=== PATIENT | male | born 1980 | race Caucasian/White ===

== ENCOUNTER 2019-02-13 16:41 | Inpatient (IN) | payer BC ==
[2019-02-13] MEDS: SOD CHLORIDE 0.9% 1,000 ML IV ×2 (17:56→23:34)
[2019-02-13] MEDS: FAMOTIDINE 20 MG INJ IV (17:56)
[2019-02-13 18:05] LABS: ADD MAN DIFF? NO
[2019-02-13 18:10] LABS: BASOPHILS % 0.4 % (0.0-2.0); EOSINOPHILS % 0.4 % (0.0-7.0); HEMATOCRIT 48.9 % (42.0-52.0); LYMPHOCYTES # 1.7 10^3/ul (0.8-2.9); LYMPHOCYTES % 20.9 % (15.0-51.0); MEAN CORPUSCULAR HEMOGLOBIN 28.7 pg (29.0-33.0); MEAN CORPUSCULAR HGB CONC 32.7 g/dl (32.0-37.0); MEAN CORPUSCULAR VOLUME 87.6 fl (82.0-101.0); MEAN PLATELET VOLUME 9.9 fl (7.4-10.4); MONOCYTE # 0.8 10^3/ul (0.3-0.9); MONOCYTES % 9.6 % (0.0-11.0); NEUTROPHIL # 5.4 10^3/ul (1.6-7.5); NEUTROPHILS % 68.4 % (39.0-77.0); PLATELET COUNT 280 10^3/UL (140-415); RED BLOOD COUNT 5.58 10^6/ul (4.70-6.10); RED CELL DISTRIBUTION WIDTH 13.4 % (11.5-14.5)
[2019-02-13 18:10] LABS: WHITE BLOOD COUNT 7.9 10^3/ul (4.8-10.8)
[2019-02-13 18:24] LABS: ADD UMIC NO; UR ASCORBIC ACID NEGATIVE (NEGATIVE); UR BILIRUBIN (Dip) NEGATIVE (NEGATIVE); UR BLOOD (Dip) NEGATIVE (NEGATIVE); UR CLARITY CLEAR (CLEAR); UR COLOR AMBER (YELLOW); UR GLUCOSE (Dip) NEGATIVE (NEGATIVE); UR KETONES (Dip) 1+ mg/dL (NEGATIVE); UR LEUKOCYTE ESTERASE (Dip) NEGATIVE Leu/ul (NEGATIVE); UR NITRITE (Dip) NEGATIVE (NEGATIVE); UR SPECIFIC GRAVITY (Dip) 1.003 (1.003-1.030); UR TOTAL PROTEIN (Dip) NEGATIVE (NEGATIVE); UR UROBILINOGEN (Dip) NEGATIVE (NEGATIVE)
[2019-02-13 18:31] LABS: ALANINE AMINOTRANSFERASE 748 IU/L (13-69); ALBUMIN 4.6 g/dl (3.3-4.9); ALBUMIN/GLOBULIN RATIO 1.02; ALKALINE PHOSPHATASE 234 IU/L (42-121); ANION GAP 11 (5-13); ASPARTATE AMINO TRANSFERASE 391 IU/L (15-46); BILIRUBIN,INDIRECT 1.4 mg/dl (0-1.1); BILIRUBIN,TOTAL 5.6 mg/dl (0.2-1.3); BLOOD UREA NITROGEN 9 mg/dl (7-20); CALCIUM 9.4 mg/dl (8.4-10.2); CARBON DIOXIDE 30 mmol/L (21-31); CHLORIDE 100 mmol/L (97-110); CREATININE 0.97 mg/dl (0.61-1.24); Estimated GFR > 60 mL/min (>60); GLUCOSE 101 mg/dl (70-220); LIPASE 91 U/L (23-300); POTASSIUM 3.9 mmol/L (3.5-5.1); SODIUM 141 mmol/L (135-144); TOTAL PROTEIN 9.1 g/dl (6.1-8.1)
[2019-02-13 18:32] LABS: INR 0.89; PROTIME 12.2 Sec (11.9-14.9)
[2019-02-13] MEDS ORDERED: ONDANSETRON 4 MG INJ IV ×2 (19:30→20:30)
[2019-02-13] MEDS ORDERED: ACETAMINOPHEN 325 MG TAB PO (19:30)
[2019-02-13] MEDS ORDERED: DOCUSATE SODIUM 100 MG CAP PO (20:30)
[2019-02-13] MEDS ORDERED: HYDROmorphONE 0.5 MG/0.5 ML SYG IV (20:30)
[2019-02-13] MEDS ORDERED: BISACODYL (EC) 5 MG TAB PO (20:30)
[2019-02-14 04:59] LABS: ADD MAN DIFF? NO
[2019-02-14 05:05] LABS: WHITE BLOOD COUNT 6.3 10^3/ul (4.8-10.8)
[2019-02-14 05:05] LABS: BASOPHILS % 0.6 % (0.0-2.0); EOSINOPHILS # 0.1 10^3/ul (0.0-0.5); EOSINOPHILS % 1.1 % (0.0-7.0); HEMATOCRIT 46.4 % (42.0-52.0); HEMOGLOBIN 15.3 g/dl (14.0-18.0); LYMPHOCYTES # 1.7 10^3/ul (0.8-2.9); LYMPHOCYTES % 26.5 % (15.0-51.0); MEAN CORPUSCULAR HEMOGLOBIN 28.8 pg (29.0-33.0); MEAN CORPUSCULAR VOLUME 87.2 fl (82.0-101.0); MEAN PLATELET VOLUME 9.5 fl (7.4-10.4); MONOCYTE # 0.8 10^3/ul (0.3-0.9); MONOCYTES % 12.1 % (0.0-11.0); NEUTROPHIL # 3.7 10^3/ul (1.6-7.5); NEUTROPHILS % 59.2 % (39.0-77.0); PLATELET COUNT 278 10^3/UL (140-415); RED BLOOD COUNT 5.32 10^6/ul (4.70-6.10); RED CELL DISTRIBUTION WIDTH 13.4 % (11.5-14.5)
[2019-02-14 05:32] LABS: ALANINE AMINOTRANSFERASE 712 IU/L (13-69); ALBUMIN 4.1 g/dl (3.3-4.9); ALBUMIN/GLOBULIN RATIO 1.17; ALKALINE PHOSPHATASE 169 IU/L (42-121); ANION GAP 8 (5-13); ASPARTATE AMINO TRANSFERASE 382 IU/L (15-46); BILIRUBIN,INDIRECT 1.4 mg/dl (0-1.1); BILIRUBIN,TOTAL 4.9 mg/dl (0.2-1.3); BLOOD UREA NITROGEN 11 mg/dl (7-20); CALCIUM 8.9 mg/dl (8.4-10.2); CARBON DIOXIDE 28 mmol/L (21-31); CHLORIDE 106 mmol/L (97-110); CHOL/HDL RATIO 6.7 RATIO; CREATININE 1.07 mg/dl (0.61-1.24); Estimated GFR > 60 mL/min (>60); GLUCOSE 97 mg/dl (70-220); HDL CHOLESTEROL 28 mg/dl (28-63); LDL CHOLESTEROL,CALCULATED 126 mg/dl; MAGNESIUM 2.3 mg/dl (1.7-2.5); SODIUM 142 mmol/L (135-144); TOTAL PROTEIN 7.6 g/dl (6.1-8.1); TRIGLYCERIDES 170 mg/dl (0-149)
[2019-02-14 05:34] LABS: CHOLESTEROL 188 mg/dl (100-200)
[2019-02-14 06:49] LABS: HEMOGLOBIN A1C 5.5 % (0-5.9)
[2019-02-14] MEDS: SOD CHLORIDE 0.9% 1,000 ML IV ×2 (08:43→11:34)
[2019-02-14 08:53] LABS: HAAIG REFLEX REFLEX FILED
[2019-02-14 09:15] LABS: ETHANOL < 10.0 mg/dl (0-0)
[2019-02-14 10:49] LABS: HEPATITIS B SURFACE ANTIGEN NEGATIVE (NEGATIVE)
[2019-02-14 11:07] LABS: HEPATITIS B CORE ANTIBODY NEGATIVE (NEGATIVE); HEPATITIS C VIRAL ANTIBODY NEGATIVE (NEGATIVE)
[2019-02-14] MEDS ORDERED: MIDAZOLAM 1 MG/ML 2 ML INJ (19:48)
[2019-02-14] MEDS ORDERED: PROPOFOL 20 ML (19:50)
[2019-02-14] MEDS ORDERED: SUCCINYLCHOLINE CHLORIDE 100 MG/5 ML SYG IV (19:50)
[2019-02-14] MEDS ORDERED: LIDOCAINE 2% (SDV) 5 ML INJ (19:50)
[2019-02-14] MEDS ORDERED: DIPHENHYDRAMINE 50 MG INJ IV (20:00)
[2019-02-14] MEDS ORDERED: PROCHLORPERAZINE 10 MG INJ IV (20:00)
[2019-02-14] MEDS ORDERED: FENTAnyl 50 MCG/ML VIAL IV (20:00)
[2019-02-14] MEDS ORDERED: HYDROmorphONE 1 MG/5 ML IV SYRINGE IV ×3 (20:00)
[2019-02-14] MEDS ORDERED: MEPERIDINE 25 MG INJ IV (20:00)
[2019-02-14] MEDS ORDERED: ONDANSETRON 4 MG INJ IV (20:00)
[2019-02-14] MEDS: NACL 0.9% 3 ML SYG IV (22:02)
[2019-02-14] MEDS: CEPASTAT LOZENGE MT (22:33)
[2019-02-15] MEDS: SOD CHLORIDE 0.9% 1,000 ML IV ×2 (03:36→15:40)
[2019-02-15 05:07] LABS: ADD MAN DIFF? NO
[2019-02-15 05:14] LABS: BASOPHILS % 0.2 % (0.0-2.0); EOSINOPHILS # 0.1 10^3/ul (0.0-0.5); EOSINOPHILS % 0.6 % (0.0-7.0); HEMATOCRIT 43.4 % (42.0-52.0); HEMOGLOBIN 14.2 g/dl (14.0-18.0); LYMPHOCYTES # 1.6 10^3/ul (0.8-2.9); LYMPHOCYTES % 18.7 % (15.0-51.0); MEAN CORPUSCULAR HEMOGLOBIN 28.2 pg (29.0-33.0); MEAN CORPUSCULAR HGB CONC 32.7 g/dl (32.0-37.0); MEAN CORPUSCULAR VOLUME 86.3 fl (82.0-101.0); MEAN PLATELET VOLUME 9.6 fl (7.4-10.4); MONOCYTE # 0.9 10^3/ul (0.3-0.9); MONOCYTES % 10.8 % (0.0-11.0); NEUTROPHILS % 69.4 % (39.0-77.0); PLATELET COUNT 290 10^3/UL (140-415); RED BLOOD COUNT 5.03 10^6/ul (4.70-6.10); RED CELL DISTRIBUTION WIDTH 13.2 % (11.5-14.5)
[2019-02-15 05:14] LABS: WHITE BLOOD COUNT 8.6 10^3/ul (4.8-10.8)
[2019-02-15 05:45] LABS: ALANINE AMINOTRANSFERASE 721 IU/L (13-69); ALBUMIN 3.6 g/dl (3.3-4.9); ALKALINE PHOSPHATASE 150 IU/L (42-121); ANION GAP 6 (5-13); ASPARTATE AMINO TRANSFERASE 346 IU/L (15-46); BILIRUBIN,INDIRECT 1.4 mg/dl (0-1.1); BILIRUBIN,TOTAL 2.9 mg/dl (0.2-1.3); BLOOD UREA NITROGEN 10 mg/dl (7-20); CALCIUM 8.6 mg/dl (8.4-10.2); CARBON DIOXIDE 30 mmol/L (21-31); CHLORIDE 106 mmol/L (97-110); CREATININE 0.92 mg/dl (0.61-1.24); Estimated GFR > 60 mL/min (>60); GLUCOSE 127 mg/dl (70-220); POTASSIUM 4.4 mmol/L (3.5-5.1); SODIUM 142 mmol/L (135-144); TOTAL PROTEIN 7.2 g/dl (6.1-8.1)
[2019-02-15] MEDS: CEPASTAT LOZENGE MT ×2 (12:04→16:10)
[2019-02-15] MEDS: ACETAMINOPHEN 325 MG TAB PO ×2 (15:40→21:36)
[2019-02-16] MEDS: SOD CHLORIDE 0.9% 1,000 ML IV (03:13)
[2019-02-16 05:14] LABS: ADD MAN DIFF? NO
[2019-02-16 05:17] LABS: WHITE BLOOD COUNT 6.5 10^3/ul (4.8-10.8)
[2019-02-16 05:17] LABS: BASOPHILS % 0.5 % (0.0-2.0); EOSINOPHILS # 0.1 10^3/ul (0.0-0.5); EOSINOPHILS % 2.2 % (0.0-7.0); HEMATOCRIT 44.4 % (42.0-52.0); HEMOGLOBIN 14.5 g/dl (14.0-18.0); LYMPHOCYTES # 1.9 10^3/ul (0.8-2.9); LYMPHOCYTES % 28.5 % (15.0-51.0); MEAN CORPUSCULAR HEMOGLOBIN 28.6 pg (29.0-33.0); MEAN CORPUSCULAR HGB CONC 32.7 g/dl (32.0-37.0); MEAN CORPUSCULAR VOLUME 87.6 fl (82.0-101.0); MEAN PLATELET VOLUME 9.9 fl (7.4-10.4); MONOCYTE # 0.7 10^3/ul (0.3-0.9); MONOCYTES % 10.9 % (0.0-11.0); NEUTROPHIL # 3.7 10^3/ul (1.6-7.5); NEUTROPHILS % 57.4 % (39.0-77.0); PLATELET COUNT 296 10^3/UL (140-415); RED BLOOD COUNT 5.07 10^6/ul (4.70-6.10); RED CELL DISTRIBUTION WIDTH 13.6 % (11.5-14.5)
[2019-02-16 06:20] LABS: ALANINE AMINOTRANSFERASE 705 IU/L (13-69); ALBUMIN 3.8 g/dl (3.3-4.9); ALBUMIN/GLOBULIN RATIO 1.11; ALKALINE PHOSPHATASE 147 IU/L (42-121); AMYLASE 92 U/L (11-123); ANION GAP 6 (5-13); ASPARTATE AMINO TRANSFERASE 305 IU/L (15-46); BILIRUBIN,INDIRECT 1.4 mg/dl (0-1.1); BILIRUBIN,TOTAL 1.4 mg/dl (0.2-1.3); BLOOD UREA NITROGEN 8 mg/dl (7-20); CALCIUM 8.6 mg/dl (8.4-10.2); CARBON DIOXIDE 30 mmol/L (21-31); CHLORIDE 106 mmol/L (97-110); Estimated GFR > 60 mL/min (>60); GLUCOSE 110 mg/dl (70-220); LIPASE 170 U/L (23-300); POTASSIUM 4.9 mmol/L (3.5-5.1); SODIUM 142 mmol/L (135-144); TOTAL PROTEIN 7.2 g/dl (6.1-8.1)
[2019-02-16] MEDS: CEPASTAT LOZENGE MT (10:02)
== END 2019-02-16 14:00 | disposition home or self-care (01) | DRG 446 ==
LOC: FTE 16:41 → MS1 19:11
PROC: 0FC98ZZ Extirpation of Matter from Common Bile Duct, Via Natural or Artificial Opening Endoscopic (ICD-10-PCS; principal; 2019-02-14 19:00)
PROC: 0F798DZ Dilation of Common Bile Duct with Intraluminal Device, Via Natural or Artificial Opening Endoscopic (ICD-10-PCS; 2019-02-14 19:00)
DX: K80.63 Calculus of gallbladder and bile duct with acute cholecystitis with obstruction (principal); F17.200 Nicotine dependence, unspecified, uncomplicated
CPT/HCPCS: 36415; 74330; 76705; 80053; 80061; 80307; 81003; 82150; 83036; 83690; 83735; 84443; 85025; 85610; 85730; 86704; 86709; 86803; 87081; 87340; 96374; 99285-25

== ENCOUNTER 2019-02-18 00:35 | Inpatient (IN) | payer BC ==
[2019-02-18] MEDS: SOD CHLORIDE 0.9% 1,000 ML IV ×2 (01:54→05:13)
[2019-02-18 01:56] LABS: ADD MAN DIFF? NO
[2019-02-18 01:58] LABS: WHITE BLOOD COUNT 13.7 10^3/ul (4.8-10.8)
[2019-02-18 01:58] LABS: BASOPHILS % 0.3 % (0.0-2.0); EOSINOPHILS # 0.1 10^3/ul (0.0-0.5); EOSINOPHILS % 0.5 % (0.0-7.0); HEMATOCRIT 46.5 % (42.0-52.0); HEMOGLOBIN 15.4 g/dl (14.0-18.0); LYMPHOCYTES # 1.2 10^3/ul (0.8-2.9); LYMPHOCYTES % 8.5 % (15.0-51.0); MEAN CORPUSCULAR HEMOGLOBIN 28.8 pg (29.0-33.0); MEAN CORPUSCULAR HGB CONC 33.1 g/dl (32.0-37.0); MEAN CORPUSCULAR VOLUME 86.9 fl (82.0-101.0); MEAN PLATELET VOLUME 9.5 fl (7.4-10.4); MONOCYTE # 0.7 10^3/ul (0.3-0.9); NEUTROPHIL # 11.7 10^3/ul (1.6-7.5); NEUTROPHILS % 85.3 % (39.0-77.0); PLATELET COUNT 330 10^3/UL (140-415); RED BLOOD COUNT 5.35 10^6/ul (4.70-6.10); RED CELL DISTRIBUTION WIDTH 13.2 % (11.5-14.5)
[2019-02-18] MEDS: morphine 4 MG/ML VIAL IV (02:09)
[2019-02-18] MEDS: ONDANSETRON 4 MG INJ IV (02:09)
[2019-02-18 02:19] LABS: ALANINE AMINOTRANSFERASE 913 IU/L (13-69); ALBUMIN 4.5 g/dl (3.3-4.9); ALBUMIN/GLOBULIN RATIO 1.07; ALKALINE PHOSPHATASE 222 IU/L (42-121); ANION GAP 11 (5-13); ASPARTATE AMINO TRANSFERASE 364 IU/L (15-46); BILIRUBIN,INDIRECT 1.2 mg/dl (0-1.1); BILIRUBIN,TOTAL 1.2 mg/dl (0.2-1.3); BLOOD UREA NITROGEN 16 mg/dl (7-20); CALCIUM 9.1 mg/dl (8.4-10.2); CARBON DIOXIDE 29 mmol/L (21-31); CHLORIDE 101 mmol/L (97-110); CREATININE 0.92 mg/dl (0.61-1.24); Estimated GFR > 60 mL/min (>60); GLUCOSE 144 mg/dl (70-220); LIPASE 119 U/L (23-300); SODIUM 141 mmol/L (135-144); TOTAL PROTEIN 8.7 g/dl (6.1-8.1)
[2019-02-18] MEDS: PIPER-TAZO 3.375 GM IV (PMX) 100 ML IVPB ×4 (03:55→18:39)
[2019-02-18] MEDS ORDERED: NITROGLYCERIN (SL) 0.4 MG TAB SL (04:30)
[2019-02-18] MEDS ORDERED: morphine 2 MG INJ IV (04:30)
[2019-02-18] MEDS ORDERED: ALBUTEROL/IPRATROPIUM (NEB) 3 ML AMP HHN (04:30)
[2019-02-18] MEDS ORDERED: ONDANSETRON 4 MG INJ IV (04:30)
[2019-02-18] MEDS ORDERED: hydrALAzine 20 MG INJ IV (04:30)
[2019-02-18] MEDS ORDERED: DOCUSATE SODIUM 100 MG CAP PO (04:30)
[2019-02-18] MEDS ORDERED: VANCOMYCIN IV PER PHARMACY XX (04:30)
[2019-02-18] MEDS ORDERED: MAGNESIUM HYDROXIDE 30ML CUP PO (04:30)
[2019-02-18] MEDS ORDERED: LORAZEPAM 2 MG INJ IV (04:30)
[2019-02-18 05:42] LABS: ADD MAN DIFF? NO
[2019-02-18 05:48] LABS: LACTIC ACID 1.5 mmol/L (0.5-2.0)
[2019-02-18 05:49] LABS: BASOPHILS % 0.3 % (0.0-2.0); EOSINOPHILS % 0.2 % (0.0-7.0); HEMATOCRIT 47.8 % (42.0-52.0); HEMOGLOBIN 15.7 g/dl (14.0-18.0); LYMPHOCYTES # 0.9 10^3/ul (0.8-2.9); LYMPHOCYTES % 7.1 % (15.0-51.0); MEAN CORPUSCULAR HEMOGLOBIN 28.7 pg (29.0-33.0); MEAN CORPUSCULAR HGB CONC 32.8 g/dl (32.0-37.0); MEAN CORPUSCULAR VOLUME 87.4 fl (82.0-101.0); MEAN PLATELET VOLUME 9.6 fl (7.4-10.4); MONOCYTE # 0.4 10^3/ul (0.3-0.9); MONOCYTES % 3.5 % (0.0-11.0); NEUTROPHIL # 10.6 10^3/ul (1.6-7.5); NEUTROPHILS % 88.4 % (39.0-77.0); PLATELET COUNT 325 10^3/UL (140-415); RED BLOOD COUNT 5.47 10^6/ul (4.70-6.10); RED CELL DISTRIBUTION WIDTH 13.2 % (11.5-14.5)
[2019-02-18 06:05] LABS: INR 0.92; PROTIME 12.5 Sec (11.9-14.9)
[2019-02-18 06:06] LABS: PARTIAL THROMBOPLASTIN TIME 33.5 Sec (23.0-35.0)
[2019-02-18 06:22] LABS: ALANINE AMINOTRANSFERASE 916 IU/L (13-69); ALBUMIN 4.5 g/dl (3.3-4.9); ALKALINE PHOSPHATASE 208 IU/L (42-121); ASPARTATE AMINO TRANSFERASE 325 IU/L (15-46); BILIRUBIN,INDIRECT 1.7 mg/dl (0-1.1); BILIRUBIN,TOTAL 1.7 mg/dl (0.2-1.3); TOTAL PROTEIN 7.9 g/dl (6.1-8.1)
[2019-02-18 06:37] LABS: FREE T4 (FREE THYROXINE) 1.13 ng/dl (0.79-2.35)
[2019-02-18 07:06] LABS: LIPASE 106 U/L (23-300)
[2019-02-18] MEDS: FAMOTIDINE 20 MG INJ IV (08:40)
[2019-02-18] MEDS: VANCOMYCIN HCL 1.75 GM in SOD CHLORIDE 0.9% 500 ML IVPB (08:40)
[2019-02-18] MEDS: HEPARIN 5,000 UNIT/1 ML VIAL SC ×2 (08:47→20:55)
[2019-02-18 11:35] LABS: LACTIC ACID 0.7 mmol/L (0.5-2.0)
[2019-02-18] MEDS: LACTATED RINGER'S 1,000 ML IV (12:32)
[2019-02-18] MEDS: ACETAMINOPHEN 325 MG TAB PO (15:24)
[2019-02-18] MEDS ORDERED: VANCOMYCIN 1 GM 250 ML IVPB (16:00)
[2019-02-18 16:48] LABS: LACTIC ACID 1.1 mmol/L (0.5-2.0)
[2019-02-19] MEDS: PIPER-TAZO 3.375 GM IV (PMX) 100 ML IVPB ×5 (00:34→23:49)
[2019-02-19] MEDS: LACTATED RINGER'S 1,000 ML IV ×3 (03:53→23:45)
[2019-02-19 05:30] LABS: ADD MAN DIFF? NO
[2019-02-19 05:36] LABS: WHITE BLOOD COUNT 6.2 10^3/ul (4.8-10.8)
[2019-02-19 05:36] LABS: BASOPHILS % 0.3 % (0.0-2.0); EOSINOPHILS % 0.2 % (0.0-7.0); HEMATOCRIT 44.3 % (42.0-52.0); HEMOGLOBIN 14.7 g/dl (14.0-18.0); LYMPHOCYTES # 0.9 10^3/ul (0.8-2.9); LYMPHOCYTES % 14.8 % (15.0-51.0); MEAN CORPUSCULAR HEMOGLOBIN 28.8 pg (29.0-33.0); MEAN CORPUSCULAR HGB CONC 33.2 g/dl (32.0-37.0); MEAN CORPUSCULAR VOLUME 86.7 fl (82.0-101.0); MEAN PLATELET VOLUME 9.8 fl (7.4-10.4); MONOCYTE # 0.6 10^3/ul (0.3-0.9); MONOCYTES % 9.2 % (0.0-11.0); NEUTROPHIL # 4.7 10^3/ul (1.6-7.5); NEUTROPHILS % 74.9 % (39.0-77.0); PLATELET COUNT 301 10^3/UL (140-415); RED BLOOD COUNT 5.11 10^6/ul (4.70-6.10); RED CELL DISTRIBUTION WIDTH 13.3 % (11.5-14.5)
[2019-02-19 05:50] LABS: ALANINE AMINOTRANSFERASE 616 IU/L (13-69); ALBUMIN 3.9 g/dl (3.3-4.9); ALKALINE PHOSPHATASE 149 IU/L (42-121); ASPARTATE AMINO TRANSFERASE 166 IU/L (15-46); BILIRUBIN,INDIRECT 1.2 mg/dl (0-1.1); BILIRUBIN,TOTAL 1.2 mg/dl (0.2-1.3); TOTAL PROTEIN 7.3 g/dl (6.1-8.1)
[2019-02-19 05:52] LABS: HEMOGLOBIN A1C 5.3 % (0-5.9)
[2019-02-19 06:01] LABS: LIPASE 103 U/L (23-300)
[2019-02-19 06:11] LABS: ANION GAP 10 (5-13); BLOOD UREA NITROGEN 14 mg/dl (7-20); CALCIUM 8.8 mg/dl (8.4-10.2); CARBON DIOXIDE 27 mmol/L (21-31); CHLORIDE 101 mmol/L (97-110); CREATININE 1.04 mg/dl (0.61-1.24); Estimated GFR > 60 mL/min (>60); GLUCOSE 93 mg/dl (70-220); PHOSPHORUS 3.4 mg/dl (2.5-4.9); POTASSIUM 4.3 mmol/L (3.5-5.1); SODIUM 138 mmol/L (135-144)
[2019-02-19 06:13] LABS: CHOL/HDL RATIO 6.5 RATIO; HDL CHOLESTEROL 22 mg/dl (28-63); LDL CHOLESTEROL,CALCULATED 106 mg/dl; TRIGLYCERIDES 86 mg/dl (0-149)
[2019-02-19 06:13] LABS: CHOLESTEROL 145 mg/dl (100-200)
[2019-02-19] MEDS: ACETAMINOPHEN 325 MG TAB PO (06:24)
[2019-02-19 06:28] LABS: THYROID STIMULATING HORMONE 0.756 MIU/L (0.465-4.680)
[2019-02-19 08:59] LABS: HAAIG REFLEX REFLEX FILED
[2019-02-19] MEDS: HEPARIN 5,000 UNIT/1 ML VIAL SC ×2 (09:00→21:39)
[2019-02-19] MEDS: FAMOTIDINE 20 MG INJ IV (09:01)
[2019-02-19 09:53] LABS: HEPATITIS B SURFACE ANTIGEN NEGATIVE (NEGATIVE)
[2019-02-19 10:11] LABS: HEPATITIS B CORE ANTIBODY NEGATIVE (NEGATIVE); HEPATITIS C VIRAL ANTIBODY NEGATIVE (NEGATIVE)
[2019-02-19] MEDS ORDERED: MIDAZOLAM 1 MG/ML 2 ML INJ (18:21)
[2019-02-19] MEDS ORDERED: GLYCOPYRROLATE 0.4 MG INJ (18:21)
[2019-02-19] MEDS ORDERED: NEOSTIGMINE 3 MG/3 ML SYRINGE (18:21)
[2019-02-19] MEDS ORDERED: FENTAnyl 50 MCG/ML VIAL (18:21)
[2019-02-19] MEDS ORDERED: CEFAZOLIN 1 GM INJ (18:21)
[2019-02-19] MEDS ORDERED: ONDANSETRON 4 MG INJ (18:21)
[2019-02-19] MEDS ORDERED: PROPOFOL 20 ML (18:21)
[2019-02-19] MEDS ORDERED: DEXAMETHASONE 4 MG/ML 5 ML INJ (18:21)
[2019-02-19] MEDS ORDERED: ROCURONIUM 50 MG INJ (18:21)
[2019-02-19] MEDS ORDERED: MEPERIDINE 25 MG INJ IV (18:30)
[2019-02-19] MEDS ORDERED: TRIMETHOBENZAMIDE 100 MG/ML VIAL IM (18:30)
[2019-02-19] MEDS ORDERED: ONDANSETRON 4 MG INJ IV (18:30)
[2019-02-19] MEDS ORDERED: FENTAnyl 50 MCG/ML VIAL IV ×3 (18:30)
[2019-02-19] MEDS ORDERED: EPHEDrine 25 MG/5 ML SYG IV (18:30)
[2019-02-19] MEDS ORDERED: DIPHENHYDRAMINE 50 MG INJ IV (18:30)
[2019-02-19] MEDS ORDERED: IPRATROPIUM (NEB) 0.5 MG/2.5 ML AMP HHN (18:30)
[2019-02-19] MEDS ORDERED: HYDROmorphONE 1 MG/5 ML IV SYRINGE IV ×3 (18:30)
[2019-02-19] MEDS ORDERED: ALBUTEROL 0.083% (NEB) 2.5 MG/3 ML AMP HHN (18:30)
[2019-02-19] MEDS ORDERED: OXYCODONE/ACETAMINOPHEN (5/325) TAB PO ×2 (18:30)
[2019-02-19] MEDS ORDERED: MIDAZOLAM 1 MG/ML 2 ML INJ IV (18:30)
[2019-02-19] MEDS ORDERED: hydrALAzine 20 MG INJ IV (18:30)
[2019-02-19] MEDS ORDERED: LABETALOL HCL 20MG INJ IV (18:30)
[2019-02-20] MEDS: PIPER-TAZO 3.375 GM IV (PMX) 100 ML IVPB ×4 (05:42→23:35)
[2019-02-20 05:49] LABS: ADD MAN DIFF? NO
[2019-02-20 06:06] LABS: WHITE BLOOD COUNT 2.9 10^3/ul (4.8-10.8)
[2019-02-20 06:06] LABS: BASOPHILS % 0.3 % (0.0-2.0); HEMATOCRIT 44.4 % (42.0-52.0); HEMOGLOBIN 14.7 g/dl (14.0-18.0); LYMPHOCYTES # 0.9 10^3/ul (0.8-2.9); LYMPHOCYTES % 32.2 % (15.0-51.0); MEAN CORPUSCULAR HGB CONC 33.1 g/dl (32.0-37.0); MEAN CORPUSCULAR VOLUME 87.6 fl (82.0-101.0); MEAN PLATELET VOLUME 9.9 fl (7.4-10.4); MONOCYTE # 0.2 10^3/ul (0.3-0.9); MONOCYTES % 5.2 % (0.0-11.0); NEUTROPHIL # 1.8 10^3/ul (1.6-7.5); PLATELET COUNT 319 10^3/UL (140-415); RED BLOOD COUNT 5.07 10^6/ul (4.70-6.10); RED CELL DISTRIBUTION WIDTH 13.2 % (11.5-14.5)
[2019-02-20 06:21] LABS: ALANINE AMINOTRANSFERASE 469 IU/L (13-69); ALBUMIN/GLOBULIN RATIO 1.02; ALKALINE PHOSPHATASE 137 IU/L (42-121); ANION GAP 7 (5-13); ASPARTATE AMINO TRANSFERASE 94 IU/L (15-46); BILIRUBIN,INDIRECT 0.6 mg/dl (0-1.1); BILIRUBIN,TOTAL 0.6 mg/dl (0.2-1.3); BLOOD UREA NITROGEN 13 mg/dl (7-20); CALCIUM 9.1 mg/dl (8.4-10.2); CARBON DIOXIDE 31 mmol/L (21-31); CHLORIDE 104 mmol/L (97-110); CREATININE 0.99 mg/dl (0.61-1.24); Estimated GFR > 60 mL/min (>60); GLUCOSE 140 mg/dl (70-220); POTASSIUM 5.2 mmol/L (3.5-5.1); SODIUM 142 mmol/L (135-144); TOTAL PROTEIN 7.9 g/dl (6.1-8.1)
[2019-02-20 06:31] LABS: PHOSPHORUS 4.4 mg/dl (2.5-4.9)
[2019-02-20 06:31] LABS: MAGNESIUM 2.3 mg/dl (1.7-2.5)
[2019-02-20] MEDS: HEPARIN 5,000 UNIT/1 ML VIAL SC ×2 (09:22→20:53)
[2019-02-20] MEDS: FAMOTIDINE 20 MG INJ IV (09:22)
[2019-02-20] MEDS: LACTATED RINGER'S 1,000 ML IV ×2 (18:20→23:36)
[2019-02-20] MEDS: NACL 0.9% 3 ML SYG IV (20:14)
[2019-02-20] MEDS: SACCHAROMYCES BOULARDII 250 MG CAP PO (21:26)
[2019-02-21 05:05] LABS: ADD MAN DIFF? NO
[2019-02-21 05:09] LABS: BASOPHIL # 0.1 10^3/ul (0.0-0.1); BASOPHILS % 0.7 % (0.0-2.0); EOSINOPHILS # 0.1 10^3/ul (0.0-0.5); EOSINOPHILS % 1.1 % (0.0-7.0); HEMATOCRIT 41.7 % (42.0-52.0); HEMOGLOBIN 13.5 g/dl (14.0-18.0); LYMPHOCYTES # 2.7 10^3/ul (0.8-2.9); LYMPHOCYTES % 36.4 % (15.0-51.0); MEAN CORPUSCULAR HEMOGLOBIN 28.7 pg (29.0-33.0); MEAN CORPUSCULAR HGB CONC 32.4 g/dl (32.0-37.0); MEAN CORPUSCULAR VOLUME 88.5 fl (82.0-101.0); MEAN PLATELET VOLUME 9.6 fl (7.4-10.4); MONOCYTE # 0.8 10^3/ul (0.3-0.9); MONOCYTES % 10.3 % (0.0-11.0); NEUTROPHIL # 3.8 10^3/ul (1.6-7.5); NEUTROPHILS % 51.2 % (39.0-77.0); PLATELET COUNT 337 10^3/UL (140-415); RED BLOOD COUNT 4.71 10^6/ul (4.70-6.10); RED CELL DISTRIBUTION WIDTH 13.4 % (11.5-14.5)
[2019-02-21 05:09] LABS: WHITE BLOOD COUNT 7.5 10^3/ul (4.8-10.8)
[2019-02-21 05:27] LABS: PHOSPHORUS 3.9 mg/dl (2.5-4.9)
[2019-02-21 05:27] LABS: MAGNESIUM 2.2 mg/dl (1.7-2.5)
[2019-02-21 05:30] LABS: ALANINE AMINOTRANSFERASE 318 IU/L (13-69); ALBUMIN 3.6 g/dl (3.3-4.9); ALBUMIN/GLOBULIN RATIO 1.02; ALKALINE PHOSPHATASE 101 IU/L (42-121); AMYLASE 73 U/L (11-123); ANION GAP 7 (5-13); ASPARTATE AMINO TRANSFERASE 54 IU/L (15-46); BILIRUBIN,INDIRECT 0.5 mg/dl (0-1.1); BILIRUBIN,TOTAL 0.5 mg/dl (0.2-1.3); BLOOD UREA NITROGEN 15 mg/dl (7-20); CALCIUM 8.8 mg/dl (8.4-10.2); CARBON DIOXIDE 31 mmol/L (21-31); CHLORIDE 105 mmol/L (97-110); CREATININE 1.13 mg/dl (0.61-1.24); Estimated GFR > 60 mL/min (>60); GLUCOSE 121 mg/dl (70-220); LIPASE 138 U/L (23-300); POTASSIUM 4.5 mmol/L (3.5-5.1); SODIUM 143 mmol/L (135-144); TOTAL PROTEIN 7.1 g/dl (6.1-8.1)
[2019-02-21] MEDS: PIPER-TAZO 3.375 GM IV (PMX) 100 ML IVPB ×4 (06:38→23:45)
[2019-02-21] MEDS: HEPARIN 5,000 UNIT/1 ML VIAL SC (09:00)
[2019-02-21] MEDS: FAMOTIDINE 20 MG INJ IV (09:16)
[2019-02-21] MEDS: SACCHAROMYCES BOULARDII 250 MG CAP PO ×2 (09:16→20:38)
[2019-02-21] MEDS: DEXTROSE 5%-0.45% NACL 1,000 ML IV (20:38)
[2019-02-22] MEDS: PIPER-TAZO 3.375 GM IV (PMX) 100 ML IVPB ×4 (05:28→23:59)
[2019-02-22 05:36] LABS: ADD MAN DIFF? NO
[2019-02-22 05:44] LABS: BASOPHILS % 0.5 % (0.0-2.0); EOSINOPHILS # 0.1 10^3/ul (0.0-0.5); EOSINOPHILS % 1.9 % (0.0-7.0); HEMATOCRIT 42.3 % (42.0-52.0); HEMOGLOBIN 13.5 g/dl (14.0-18.0); LYMPHOCYTES # 2.5 10^3/ul (0.8-2.9); LYMPHOCYTES % 39.4 % (15.0-51.0); MEAN CORPUSCULAR HEMOGLOBIN 28.3 pg (29.0-33.0); MEAN CORPUSCULAR HGB CONC 31.9 g/dl (32.0-37.0); MEAN CORPUSCULAR VOLUME 88.7 fl (82.0-101.0); MEAN PLATELET VOLUME 9.5 fl (7.4-10.4); MONOCYTE # 0.7 10^3/ul (0.3-0.9); MONOCYTES % 10.6 % (0.0-11.0); NEUTROPHILS % 47.3 % (39.0-77.0); PLATELET COUNT 373 10^3/UL (140-415); RED BLOOD COUNT 4.77 10^6/ul (4.70-6.10); RED CELL DISTRIBUTION WIDTH 13.2 % (11.5-14.5)
[2019-02-22 05:44] LABS: WHITE BLOOD COUNT 6.2 10^3/ul (4.8-10.8)
[2019-02-22 06:19] LABS: ALANINE AMINOTRANSFERASE 265 IU/L (13-69); ALBUMIN 3.7 g/dl (3.3-4.9); ALBUMIN/GLOBULIN RATIO 1.02; ALKALINE PHOSPHATASE 96 IU/L (42-121); ANION GAP 8 (5-13); ASPARTATE AMINO TRANSFERASE 53 IU/L (15-46); BILIRUBIN,INDIRECT 0.5 mg/dl (0-1.1); BILIRUBIN,TOTAL 0.5 mg/dl (0.2-1.3); BLOOD UREA NITROGEN 15 mg/dl (7-20); CALCIUM 8.7 mg/dl (8.4-10.2); CARBON DIOXIDE 32 mmol/L (21-31); CHLORIDE 104 mmol/L (97-110); CREATININE 1.02 mg/dl (0.61-1.24); Estimated GFR > 60 mL/min (>60); GLUCOSE 117 mg/dl (70-220); POTASSIUM 4.1 mmol/L (3.5-5.1); SODIUM 144 mmol/L (135-144); TOTAL PROTEIN 7.3 g/dl (6.1-8.1)
[2019-02-22 06:51] LABS: LIPASE 188 U/L (23-300)
[2019-02-22 06:53] LABS: MAGNESIUM 2.3 mg/dl (1.7-2.5)
[2019-02-22 06:53] LABS: PHOSPHORUS 5.6 mg/dl (2.5-4.9)
[2019-02-22] MEDS ORDERED: SEVOFLURANE 15 MIN (07:00)
[2019-02-22] MEDS: SACCHAROMYCES BOULARDII 250 MG CAP PO ×2 (09:00→20:43)
[2019-02-22] MEDS ORDERED: DEXAMETHASONE 4 MG/ML 5 ML INJ (09:38)
[2019-02-22] MEDS ORDERED: ONDANSETRON 4 MG INJ (09:38)
[2019-02-22] MEDS ORDERED: GLYCOPYRROLATE 0.4 MG INJ (09:47)
[2019-02-22] MEDS ORDERED: NEOSTIGMINE 3 MG/3 ML SYRINGE (09:47)
[2019-02-22] MEDS: LIDOCAINE 1% (MPF) 30 ML INJ (09:53)
[2019-02-22] MEDS: BUPIVACAINE 0.25%/EPI (SDV) 30 ML INJ (09:53)
[2019-02-22] MEDS ORDERED: DIPHENHYDRAMINE 50 MG INJ IV (10:00)
[2019-02-22] MEDS ORDERED: hydrALAzine 20 MG INJ IV (10:00)
[2019-02-22] MEDS ORDERED: MEPERIDINE 25 MG INJ IV (10:00)
[2019-02-22] MEDS ORDERED: ALBUTEROL 0.083% (NEB) 2.5 MG/3 ML AMP HHN (10:00)
[2019-02-22] MEDS ORDERED: HYDROmorphONE 1 MG/5 ML IV SYRINGE IV ×3 (10:00)
[2019-02-22] MEDS ORDERED: FENTAnyl 50 MCG/ML VIAL IV ×3 (10:00)
[2019-02-22] MEDS ORDERED: LABETALOL HCL 20MG INJ IV (10:00)
[2019-02-22] MEDS ORDERED: EPHEDrine 25 MG/5 ML SYG IV (10:00)
[2019-02-22] MEDS: ONDANSETRON 4 MG INJ IV (10:17)
[2019-02-22] MEDS: KETOROLAC 30 MG INJ IV (10:17)
[2019-02-22] MEDS ORDERED: KETOROLAC 15 MG INJ IV (10:30)
[2019-02-22] MEDS ORDERED: ACETAMINOPHEN 325 MG TAB PO (10:30)
[2019-02-22] MEDS: FAMOTIDINE 20 MG INJ IV (11:39)
[2019-02-22] MEDS: DEXTROSE 5%-0.45% NACL 1,000 ML IV ×2 (11:40→15:56)
[2019-02-22] MEDS: HYDROCODONE/APAP (5/325) TAB PO (22:29)
[2019-02-22] MEDS ORDERED: ONDANSETRON 4 MG INJ IV (23:30)
[2019-02-23 05:15] LABS: ADD MAN DIFF? NO
[2019-02-23 05:22] LABS: WHITE BLOOD COUNT 9.8 10^3/ul (4.8-10.8)
[2019-02-23 05:22] LABS: BASOPHILS % 0.2 % (0.0-2.0); EOSINOPHILS % 0.3 % (0.0-7.0); HEMATOCRIT 41.2 % (42.0-52.0); HEMOGLOBIN 13.6 g/dl (14.0-18.0); LYMPHOCYTES # 2.3 10^3/ul (0.8-2.9); LYMPHOCYTES % 23.2 % (15.0-51.0); MEAN CORPUSCULAR HEMOGLOBIN 28.7 pg (29.0-33.0); MEAN CORPUSCULAR VOLUME 86.9 fl (82.0-101.0); MEAN PLATELET VOLUME 9.5 fl (7.4-10.4); MONOCYTE # 0.8 10^3/ul (0.3-0.9); MONOCYTES % 8.5 % (0.0-11.0); NEUTROPHIL # 6.6 10^3/ul (1.6-7.5); NEUTROPHILS % 67.5 % (39.0-77.0); PLATELET COUNT 401 10^3/UL (140-415); RED BLOOD COUNT 4.74 10^6/ul (4.70-6.10); RED CELL DISTRIBUTION WIDTH 13.2 % (11.5-14.5)
[2019-02-23] MEDS: PIPER-TAZO 3.375 GM IV (PMX) 100 ML IVPB ×2 (05:33→12:58)
[2019-02-23 06:17] LABS: ANION GAP 6 (5-13); BLOOD UREA NITROGEN 11 mg/dl (7-20); CARBON DIOXIDE 28 mmol/L (21-31); CHLORIDE 105 mmol/L (97-110); CREATININE 1.04 mg/dl (0.61-1.24); Estimated GFR > 60 mL/min (>60); GLUCOSE 139 mg/dl (70-220); POTASSIUM 4.7 mmol/L (3.5-5.1); SODIUM 139 mmol/L (135-144)
[2019-02-23] MEDS: HEPARIN 5,000 UNIT/1 ML VIAL SC (09:00)
[2019-02-23] MEDS: FAMOTIDINE 20 MG TAB PO (09:35)
[2019-02-23] MEDS: SACCHAROMYCES BOULARDII 250 MG CAP PO (09:35)
[2019-02-23] MEDS: DEXTROSE 5%-0.45% NACL 1,000 ML IV (14:00)
[2019-02-23] MEDS ORDERED: CIPROFLOXACIN 500 MG TAB PO (18:00)
[2019-02-23] MEDS ORDERED: metroNIDAZOLE 500 MG TAB PO (22:00)
== END 2019-02-23 16:40 | disposition home or self-care (01) | DRG 418 ==
LOC: FTE 00:35 → MS1 03:18
PROC: 0FPB8DZ Removal of Intraluminal Device from Hepatobiliary Duct, Via Natural or Artificial Opening Endoscopic (ICD-10-PCS; 2019-02-19 18:00)
PROC: 0F778DZ Dilation of Common Hepatic Duct with Intraluminal Device, Via Natural or Artificial Opening Endoscopic (ICD-10-PCS; 2019-02-19 18:00)
PROC: 0FT44ZZ Resection of Gallbladder, Percutaneous Endoscopic Approach (ICD-10-PCS; principal; 2019-02-19 18:20)
DX: K80.12 Calculus of gallbladder with acute and chronic cholecystitis without obstruction (principal); K83.09 Other cholangitis
CPT/HCPCS: 71045; 74176; 74181; 74330; 76705; 80048; 80053; 80061; 80076; 82150; 83036; 83605; 83690; 83735; 84100; 84439; 84443; 85025; 85610; 85730; 86704; 86709; 86803; 87040-91; 87081; 87340; 88304